=== PATIENT | male | born 1960 | race Caucasian/White ===

== ENCOUNTER 2018-04-01 12:04 | Emergency (ER) | payer SELFPAY ==
--- NOTE | 2018-04-01 12:24 | ER Document Report ---
ED Medical Screen (RME) - General Chief Complaint: Headache Stated Complaint: HEADACHE Time Seen by Provider: 04/01/18 12:23 Mode of Arrival: Ambulatory Information source: Patient TRAVEL OUTSIDE OF THE [place] IN LAST 30 DAYS: No - HPI Patient complains to provider of: graves; off balance Onset: This morning - pt awoke with GRAVES and unsteadiness of gait. Now with some necck pain - Related Data Allergies/Adverse Reactions: No Known Allergies Allergy (Verified 04/01/18 12:05) Physical Exam - Vital signs Vitals: Temp Pulse Resp BP Pulse Ox 97.8 F 85 16 180/92 H 96 04/01/18 12:08 04/01/18 12:08 04/01/18 12:08 04/01/18 12:08 04/01/18 12:08 Course - Vital Signs Vital signs: Temp Pulse Resp BP Pulse Ox 97.8 F 85 16 180/92 H 96 04/01/18 12:08 04/01/18 12:08 04/01/18 12:08 04/01/18 12:08 04/01/18 12:08
[2018-04-01 12:46] LABS: ABSOLUTE EOSINOPHILS # (AUTO) 0.1 10^3/uL (0.0-0.6); ABSOLUTE LYMPHOCYTES (AUTO) 1.5 10^3/uL (0.5-4.7); ABSOLUTE MONOCYTES (AUTO) 0.5 10^3/uL (0.1-1.4); ABSOLUTE NEUT (AUTO) 4.8 10^3/uL (1.7-8.2); BASOPHILS % (AUTO) 0.4 % (0-2); EOSINOPHILS % (AUTO) 1.1 % (0-6); HEMOGLOBIN 17.8 g/dL (13.5-17.0); LYMPHOCYTES % (AUTO) 21.5 % (13-45); MEAN CORPUSCULAR HEMOGLOBIN 30.2 pg (27.0-33.4); MEAN CORPUSCULAR HGB CONC 34.8 g/dL (32.0-36.0); MEAN CORPUSCULAR VOLUME 87 fl (80-97); MONOCYTES % (AUTO) 7.2 % (3-13); PLATELET COUNT 164 10^3/uL (150-450); RED BLOOD COUNT 5.88 10^6/uL (4.35-5.55); RED CELL DISTRIBUTION WIDTH 14.1 % (11.5-14.0); SEGMENTED NEUTROPHILS % (AUTO) 69.8 % (42-78); TOTAL CELLS COUNTED % (AUTO) 100 %; WHITE BLOOD COUNT 6.9 10^3/uL (4.0-10.5)
--- NOTE | 2018-04-01 13:08 | RADIOLOGY REPORT (SQ) ---
EXAM DESCRIPTION: CT HEAD WITHOUT COMPLETED DATE/TIME: 04/01/2018 12:49 pm REASON FOR STUDY: [email or web address] COMPARISON: None. TECHNIQUE: Axial images acquired through the brain without intravenous contrast. Images reviewed wi th bone, brain and subdural windows. Images stored on PACS. All CT scanners at this facility use dose modulation, iterative reconstruction, and/or weight based d osing when appropriate to reduce radiation dose to as low as reasonably achievable (ALARA). [facility]: Dose Right [facility]: CareDose [facility]: Dose Right [facility]: Teradose 4D [facility]: Smart [employer] RADIATION DOSE: CT Rad equipment meets quality standard of care and radiation dose reduction techniq ues were employed. CTDIvol: 53.2 mGy. DLP: 1044 mGy-cm. mGy. LIMITATIONS: None. FINDINGS: VENTRICLES: Normal size and contour. CEREBRUM: No masses. No hemorrhage. No midline shift. No evidence for acute infarction. Normal gra y/white matter differentiation. No areas of low density in the white matter. CEREBELLUM: No masses. No hemorrhage. No alteration of density. No evidence for acute infarction. EXTRAAXIAL SPACES: No fluid collections. No masses. ORBITS AND GLOBE: No intra- or extraconal masses. Normal contour of globe without masses. CALVARIUM: No fracture. PARANASAL SINUSES: No fluid or mucosal thickening. SOFT TISSUES: No mass or hematoma. OTHER: No other significant finding. IMPRESSION: No acute intracranial findings. EVIDENCE OF ACUTE STROKE: NO. COMMENT: Quality ID # [id number]: Final reports with documentation of one or more dose reduction techniques (e.g., Automated exposure control, adjustment of the mA and/or kV according to patient size, use of iterative reconstruction technique) TECHNICAL DOCUMENTATION: JOB ID: [id number] [place]-72 2010 [employer]- All Rights Reserved Reading location - IP/workstation name: [employer]
[2018-04-01 13:11] LABS: ALANINE AMINOTRANSFERASE 46 U/L (21-72); ALKALINE PHOSPHATASE 112 U/L (38-126); ANION GAP 12 (5-19); ASPARTATE AMINO TRANSFERASE 29 U/L (17-59); BILIRUBIN,DIRECT 0.3 mg/dL (0.0-0.4); BILIRUBIN,TOTAL 0.8 mg/dL (0.2-1.3); BLOOD UREA NITROGEN 14 mg/dL (7-20); CALCIUM 9.4 mg/dL (8.4-10.2); CARBON DIOXIDE 22 mmol/L (22-30); CHLORIDE 102 mmol/L (98-107); POTASSIUM 4.1 mmol/L (3.6-5.0); SODIUM 136.3 mmol/L (137-145)
[2018-04-01 13:21] LABS: GLUCOSE 410 mg/dL (75-110)
[2018-04-01] MEDS ORDERED: NORMAL SALINE 1000 ML 1,000 ML IV ONE (14:02)
--- NOTE | 2018-04-01 14:13 | ER Document Report ---
ED Headache - General Mode of Arrival: Ambulatory Information source: Patient TRAVEL OUTSIDE OF THE [place] IN LAST 30 DAYS: No <DARRON AYALA - Last Filed: 04/01/18 14:42> <MARGAUX CHAMBERS - Last Filed: 04/01/18 15:52> - General Chief Complaint: Headache Stated Complaint: HEADACHE Time Seen by Provider: 04/01/18 12:23 Notes: 57-year-old male who presents to the emergency department today with complaints of headache that began this morning. Patient states when he woke up this morning he did not have a headache, shortly after waking up the headache began and it progressed slowly beginning in the temporal area and progressing to the back of his head. Patient states he had nausea momentarily but denies any vomiting. Patient denies any frequent urination. 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 denies: Vomiting Genitourinary: denies: Frequency Male Genitourinary: No symptoms reported Musculoskeletal: No symptoms reported Skin: No symptoms reported Hematologic/Lymphatic: No symptoms reported Neurological/Psychological: See HPI, Headaches -: Yes All other systems reviewed and negative <DARRON AYALA - Last Filed: 04/01/18 14:42> Physical Exam <DARRON AYALA - Last Filed: 04/01/18 14:42> <MARGAUX CHAMBERS - Last Filed: 04/01/18 15:52> - Vital signs Vitals: Temp Pulse Resp BP Pulse Ox 97.8 F 85 16 180/92 H 96 04/01/18 12:08 04/01/18 12:08 04/01/18 12:08 04/01/18 12:08 04/01/18 12:08 - Notes Notes: Physical Exam: General: Alert, appears well. HEENT: Normocephalic. Atraumatic. PERRL. Extraocular movements intact. Oropharynx clear. Neck: Supple. Non-tender. No change in pain with putting his chin on the chest. Respiratory: No respiratory distress. Clear and equal breath sounds bilaterally. Cardiovascular: Regular rate and rhythm. Abdominal: Normal Inspection. Non-tender. No distension. Normal Bowel Sounds. Back: Non-tender. No deformity or step off. Extremities: Moves all four extremities. Upper extremities: Normal inspection. Normal ROM. Lower extremities: Normal inspection. No edema. Normal ROM. Neurological: Normal cognition. AAOx4. Normal speech. Psychological: Normal affect. Normal Mood. Skin: Warm. Dry. Normal color. (DARRON AYALA) Course - Laboratory Result Diagrams: 04/01/18 12:30 04/01/18 12:30 <DARRON AYALA - Last Filed: 04/01/18 14:42> - Laboratory Result Diagrams: 04/01/18 12:30 04/01/18 12:30 - Diagnostic Test Radiology reviewed: Image reviewed, Reports reviewed - CT scan of the head does not show any acute process. <MARGAUX CHAMBERS - Last Filed: 04/01/18 15:52> - Re-evaluation Re-evalutation: 04/01/18 15:45 Patient reports his headache is much better. He has been sleeping. His hemoglobin A1c was 10.8, his blood sugar was 110 today. He was counseled on the need to get a local medical doctor if he can stay in this area. He will be started on metformin and again should get a local medical doctor to start his regular diabetes monitoring and management. (MARGAUX CHAMBERS) - Vital Signs Vital signs: Temp Pulse Resp BP Pulse Ox 97.8 F 85 16 180/92 H 96 04/01/18 12:08 04/01/18 12:08 04/01/18 12:08 04/01/18 12:08 04/01/18 12:08 - Laboratory Laboratory results interpreted by me: 04/01/18 04/01/18 04/01/18 12:30 12:30 12:30 RBC 5.88 H Hgb 17.8 H RDW 14.1 H Sodium 136.3 L Glucose 410 H* Hemoglobin A1c % 10.8 H Discharge <DARRON AYALA - Last Filed: 04/01/18 14:42> <MARGAUX CHAMBERS - Last Filed: 04/01/18 15:52> - Discharge Clinical Impression: Muscle tension headache, New onset type 2 diabetes mellitus High blood pressure Qualifiers: Hypertension type: essential hypertension Qualified Code(s): I10 - Essential ( primary) hypertension Condition: Stable Disposition: HOME, SELF-CARE Additional Instructions: Tension Headache: Your problem has been diagnosed as muscle tension headache. This very common type of headache occurs because of tightness in the muscles of the head and neck. The cause may be neck or jaw joint problems, but most commonly the cause is emotional stress. The headache may last hours or days. The treatment of uncomplicated tension headaches is rest and pain medication. Often, the newer antiinflammatory pain medications are prescribed, as these also decrease the irritability of the painful tissues. Muscle relaxers , cold packs, or warm packs are sometimes helpful. Anti-anxiety medication or narcotics are sometimes needed temporarily, but are best avoided in the long run. Your doctor has evaluated your headache problem, and finds no evidence of a serious health problem as a cause for the headache. If your headache becomes more severe, or if new symptoms develop (such as fever, stiff neck, vomiting, or decreasing alertness) you should be re-examined by the physician. Diabetes: You have an abnormally high blood sugar, this is called diabetes. It's very important that you follow up with a primary care provider. Uncontrolled high blood sugar leads to early heart disease, strokes, nerve damage, eye damage, and kidney damage. All diabetics should follow a diet designed to control the blood sugar. Overweight diabetics should exercise regularly and lose weight. If this is not sufficient to control the blood sugar, pills or insulin shots are necessary. Younger people who develop diabetes almost always require insulin daily. Home testing of blood sugars or urine sugar is required. Diabetic teaching is available to help you figure insulin doses and monitor the blood sugar. Call the physician if there is faintness, excess sleepiness, or very rapid breathing. If hypoglycemia (LOW blood sugar) develops, symptoms are shakiness, weakness, sweating, and confusion. In this case, you should eat or drink something with sugar at once. Drink plenty of fluids. Get plenty of rest. Take Tylenol and ibuprofen for your headache if needed. Start taking the metformin as prescribed. Be sure you are taking your blood pressure medication. Check your blood pressure frequently. You may need more medication if your pressure continues to run high. Follow-up with a local medical doctor to recheck your blood sugars and to start you on a diabetes management program. RETURN TO THE EMERGENCY ROOM IF ANY NEW OR WORSENING SYMPTOMS. Prescriptions: Metformin HCl [Glucophage] 850 mg PO BID #60 tablet Scribe Attestation: 04/01/18 15:00 I personally performed the services described in the documentation, reviewed and edited the documentation which was dictated to the scribe in my presence, and it accurately records my words and actions. (MARGAUX CHAMBERS) Scribe Documentation - Scribe Written by Jewel:: Jewel Tabares, 04/01/2018 1425 acting as scribe for :: Anali <DARRON AYALA - Last Filed: 04/01/18 14:42>
[2018-04-01] MEDS ORDERED: PROCHLORPERAZINE EDISYLATE INJ 10 MG/2 ML VIAL IV ONE (14:21)
[2018-04-01] MEDS ORDERED: DIPHENHYDRAMINE HCL 25 MG CAPSULE PO ONE (14:21)
[2018-04-01] MEDS ORDERED: KETOROLAC TROMETHAMINE INJ/PF 30 MG/1 ML SDV IV ONE (14:21)
[2018-04-01 16:55] VITALS: BP 150/83
== END 2018-04-01 16:49 | disposition home or self-care (01) ==
LOC: ER 12:04
DX: G44.209 Tension-type headache, unspecified, not intractable (principal); E11.9 Type 2 diabetes mellitus without complications; R11.0 Nausea; I10 Essential (primary) hypertension; I25.2 Old myocardial infarction
CPT/HCPCS: 99284; 96361; 96374; 96375; 36415; 85025; 80053; 83036; 70450; J1885; J0780; J7030